=== PATIENT | male | born 1955 | race Caucasian/White ===

== ENCOUNTER 2017-02-10 18:43 | Emergency (ER) | payer OTHER ==
[~2017-02-10] VITALS: Ht 170.2 cm; Wt 91.6 kg
[2017-02-10 18:44] VITALS: BP 154/92
[2017-02-10] MEDS ORDERED: ROSU40TA PO (19:04)
[2017-02-10] MEDS ORDERED: [UNRECOGNIZED DRUG - CODE] PO (19:04)
[2017-02-10] MEDS ORDERED: MICA40TA PO (19:04)
[2017-02-10] MEDS ORDERED: DICL1GEL3 TOP (19:04)
[2017-02-10] MEDS ORDERED: VITA10002 PO (19:04)
[2017-02-10] MEDS ORDERED: CETI10TA PO (19:04)
[2017-02-10] MEDS ORDERED: ASPI1TAB PO (19:04)
[2017-02-10] MEDS ORDERED: NAPROXEN 250 MG TAB PO ONE (19:45)
[2017-02-10] MEDS ORDERED: NAPR500T PO (19:48)
== END 2017-02-10 19:58 | disposition home or self-care (01) ==
LOC: M ED 19:47
DX: T22.112A Burn of first degree of left forearm, initial encounter (principal); T22.111A Burn of first degree of right forearm, initial encounter; T25.112A Burn of first degree of left ankle, initial encounter; T25.111A Burn of first degree of right ankle, initial encounter; T25.122A Burn of first degree of left foot, initial encounter; T25.121A Burn of first degree of right foot, initial encounter; T20.16XA Burn of first degree of forehead and cheek, initial encounter; T20.13XA Burn of first degree of chin, initial encounter; X14.1XXA Other contact with hot air and other hot gases, initial encounter; Y92.89 Other specified places as the place of occurrence of the external cause; Y93.89 Activity, other specified; Y99.9 Unspecified external cause status; I10 Essential (primary) hypertension; I25.10 Atherosclerotic heart disease of native coronary artery without angina pectoris; I25.2 Old myocardial infarction; Z79.82 Long term (current) use of aspirin; Z79.899 Other long term (current) drug therapy

== ENCOUNTER → 2018-07-22 | Outpatient (CLI) | payer OTHER | LOC: M RAD 08:11 | DX: I77.810 Thoracic aortic ectasia (principal); I25.10 Atherosclerotic heart disease of native coronary artery without angina pectoris; R07.89 Other chest pain | CPT/HCPCS: 76775 ==

== ENCOUNTER → 2022-11-06 | Outpatient (CLI) | payer MEDICARE, OTHER ==
[~2022-11-06] MED LIST: ASPI81TA26 PO; BIMA01SOL OU; CETI10TA PO; CYAN100049 PO; DICL1GEL3 TOP; EZET10TA21 PO; MICA40TA PO; NAPR-837 PO; NITR0.4S14 SL; ROSU40TA4 PO; SERT50TA29 PO; [UNRECOGNIZED DRUG - CODE] PO
== END ==
LOC: M LABSMTC 09:05
PROVIDERS: ATTEND Anesthesiology
DX: Z01.812 Encounter for preprocedural laboratory examination (principal); Z11.52 Encounter for screening for COVID-19

== ENCOUNTER 2022-11-08 09:50 | Day surgery (SDC) | payer MEDICARE, OTHER ==
[~2022-11-08] VITALS: Ht 170.2 cm; Wt 92.9 kg
[~2022-11-08 09:50] MED LIST changes: +NS 1,000 ML IV ONE
[2022-11-08] MEDS ORDERED: propofoL 200 MG/20 ML VIAL As Ordered ONE (11:47)
[2022-11-08] MEDS ORDERED: LIDOCAINE 2% 100MG/5ML SDV (FOR ANES.) As Ordered ONE (11:47)
[2022-11-08 12:30] VITALS: BP 114/76
== END 2022-11-08 12:35 | disposition home or self-care (01) ==
LOC: M OPP 09:50
PROVIDERS: ATTEND Surgery
DX: D12.6 Benign neoplasm of colon, unspecified (principal); R19.5 Other fecal abnormalities; I10 Essential (primary) hypertension; E78.00 Pure hypercholesterolemia, unspecified; G47.33 Obstructive sleep apnea (adult) (pediatric); Z79.02 Long term (current) use of antithrombotics/antiplatelets; Z79.1 Long term (current) use of non-steroidal anti-inflammatories (NSAID); Z79.82 Long term (current) use of aspirin; Z79.899 Other long term (current) drug therapy; Z88.8 Allergy status to other drugs, medicaments and biological substances; Z86.74 Personal history of sudden cardiac arrest